=== PATIENT | female | born 1995 | race Caucasian/White ===

== ENCOUNTER → 2017-10-22 12:25 | Outpatient (CLI) | payer BC, SELFPAY ==
--- NOTE | 2017-10-22 12:26 | DI.RAD.S_ITS ---
PROCEDURE: HL HYSTEROSAPINGOGRAPHY INDICATIONS: Infertility COMPARISON: None. FINDINGS: Patient had a documented negative test prior to the study. Procedure was performed by Dr. Calles. Following speculum insertion, a balloon-tip catheter was inserted into the cervical canal, and secured by inflating the balloon. Contrast was then injected into the endometrial canal. Uterus: The uterine cavity appears normal in size and morphology, without synechiae or masses. Fallopian tubes: Both fallopian tubes fill with contrast, and appear normal in caliber and morphology. There is ready dispersion of contrast into the peritoneal cavity. IMPRESSION: Bilaterally patent fallopian tubes. Normal-appearing endometrial cavity. Dictated by: Kin Doll M.D. on 10/22/2017 at 14:04 Approved by: Kin Doll M.D. on 10/22/2017 at 14:06
--- NOTE | 2017-11-13 09:17 | PM.PROC.1 ---
Procedures Date/Time Date of procedure: 10/22/17 Time of procedure: 13:00 General Procedure description: After informed consent was obtained, the patient was placed in the lithotomy position on the fluoroscopy table. A bivalve speculum was placed into the vagina. A single-tooth tenaculum was placed on the anterior lip of the cervix. The cervix was cleaned x3 with Betadine. The HSG catheter was placed into the endometrial cavity and the balloon was inflated. Approximately 24 cc of Isovue 300 was injected under direct fluoroscopic examination. There was spill from both tubes immediately. The contours of the uterus were normal. The catheter balloon was deflated and the catheter was removed from the uterus. The single-tooth tenaculum was removed from the anterior lip of the cervix. The bivalve speculum was removed from the vagina. The patient tolerated the procedure well. Complications: none
--- NOTE | 2017-11-13 09:21 | PM.PROC.1 ---
Procedures General Complications: none
--- NOTE | 2017-11-13 09:22 | P.PCN_ITS ---
Procedures General Complications: none
== END ==
PROVIDERS: Visit Provider Obstetrics & Gynecology
DX: N97.9 Female infertility, unspecified (principal)
CPT/HCPCS: 58340; 74740